=== PATIENT | female | born 1985 | race Caucasian/White ===

== ENCOUNTER 2017-11-13 04:01 | Observation (INO) | payer OTHER ==
--- NOTE | 2017-11-16 00:21 | PDGENHP ---
History and Physical History and Physical: S) pt presents to L&D with complaints of contractions since 0400. She states they have been getting more intense and are approx every 5-8 minutes. She denies any aggravating or alleviating factors. She denies any LOF, Vb. She reports +FM. She denies any headaches, visual changes, epigastric pain. O) VSS Exam: constitutional: WN/WF HEENT: supple Chest: CTA-B Heart: RRR no murmurs noted Abdomen: soft, nontender, gravid SVE: 3/-2 Extremities: WNL, trace edema skin: Warm, dry, intact Neuro: grossly normal Psych: normal affect A) 32yo with IUP@ 41-4wks likely early labor GBS Negative cat 1 FHR tracing P) d/c home at this time anticipate she will be back within 24hours [facility]KC and labor prec discussed IOL sched for 4/2
== END 2017-11-13 07:19 | disposition home or self-care (01) ==
LOC: FLD 04:01
PROVIDERS: ADMIT Advanced Practice Midwife; ATTEND Advanced Practice Midwife
DX: O47.1 False labor at or after 37 completed weeks of gestation (principal); O48.0 Post-term pregnancy; Z3A.41 41 weeks gestation of pregnancy
CPT/HCPCS: 59025; G0378

== ENCOUNTER 2017-11-13 21:23 | Inpatient (IN) | payer OTHER ==
[2017-11-14] MEDS ORDERED: TERBUTALINE SULFATE 1 MG/ML VIAL IV PRN (01:19)
[2017-11-14] MEDS ORDERED: LIDOCAINE 1% 300 MG/30 ML SDV SC PRN (01:19)
[2017-11-14] MEDS ORDERED: OXYTOCIN 20 UNIT in LR 1,000 ML IV PRN (01:19)
[2017-11-14] MEDS ORDERED: OLIVE OIL 118 ML BTL MISC PRN (01:19)
[2017-11-14] MEDS ORDERED: EPSOM SALT 454 GM TP PRN (01:19)
[2017-11-14] MEDS ORDERED: MISOPROSTOL 200 MCG TAB PR PRN (01:19)
[2017-11-14] MEDS ORDERED: LIDOCAINE 1% 300 MG/30 ML SDV ONE (01:37)
[2017-11-14] MEDS ORDERED: OXYTOCIN 10 UNIT/ML VIAL ONE (01:38)
[2017-11-14] MEDS ORDERED: AMMONIA AROMATIC 1 EACH AMP IH ONE (01:38)
[2017-11-14] MEDS ORDERED: OLIVE OIL 118 ML BTL ONE (01:38)
[2017-11-14] MEDS ORDERED: MISOPROSTOL 200 MCG TAB ONE (01:38)
[2017-11-14 02:25] LABS: PLATELET COUNT 194 10^3/uL (150-400)
[2017-11-14] MEDS: LR 1,000 ML IV PRN ×3 (03:07→04:31)
[2017-11-14] MEDS ORDERED: ONDANSETRON 4 MG/2 ML VIAL IVP PRN ×2 (03:15→04:16)
[2017-11-14] MEDS ORDERED: PHENYLEPHRINE HCL 100 MCG/ML SYR ONE (03:28)
[2017-11-14] MEDS ORDERED: BUPIVACAINE 0.25% 30 ML SDV ONE (03:28)
[2017-11-14] MEDS ORDERED: fentaNYL 100 MCG/2 ML INJ ONE (03:29)
[2017-11-14] MEDS ORDERED: PHENYLEPHRINE HCL 100 MCG/ML SYR IVP PRN (04:16)
--- NOTE | 2017-11-14 04:23 | PREANESOB ---
Obstetric Pre-Anesthesia Info - General Info Proposed Procedure: Labor and delivery. : 2 Para: 0 VIVIANA: 11/02/17 Gestational Age: 41 week(s) and 4 day(s) - Info Status: Postmature Monitors: External FHR Baseline (bpm): 120 FHR Pattern: Reassuring - Labor Status Cervical Dilation per last OB SVE: 5 Indications for Labor Analgesia: Pain Control Labor Epidural: Proposed Anesthesia ROS: Prior general anesthesia. Allergies/Adverse Reactions: Allergy/AdvReac Type Severity Reaction Status Date / Time dog dander Allergy Severe Dyspnea Verified 06/25/16 06:53 SEASONAL Allergy Uncoded 11/13/17 04:14 Home Medications: Medication Instructions Recorded 1 tab PO DAILY 11/13/17 Visit Medications: Generic Name Dose Route Start Last Admin Trade Name Freq PRN Reason Stop Dose Admin Diphenhydramine HCl 25 - 50 mg 11/14/17 04:16 Benadryl Injection IVP 05/13/18 04:15 Q6HRS PRN Itching Lactated Ringer's 1,000 mls @ 0 mls/hr 11/14/17 01:19 11/14/17 03:56 Lr IV 11/15/17 01:18 1,000 mls PRN PRN Administration SEE PROTOCOL CONDITIONS Protocol Per Protocol Oxytocin 20 unit/ Lactated 1,002 mls @ 150 mls/hr 11/14/17 01:19 Ringer's IV PRN PRN Post- bleeding Fentanyl/Bupivacaine HCl 100 mls @ 0 mls/hr 11/14/17 04:30 Fentanyl/Bupivacaine/Ns 2 Mcg/Ml 0.1% (Premix EP 11/24/17 04:29 CONT THALIA Protocol As Directed Lactated Ringer's 500 mls @ 0 mls/hr 11/14/17 04:30 Lr IV 05/13/18 04:29 CONT THALIA As Directed Ibuprofen 600 mg 11/14/17 01:19 Motrin PO 05/13/18 01:18 Q6HRS PRN post , inflammation Lidocaine HCl 300 mg 11/14/17 01:19 Lidocaine Hcl 1% SC 05/13/18 01:18 ONCE PRN episiotomy Magnesium Sulfate 454 gm 11/14/17 01:19 Epsom Salt TP 05/13/18 01:18 Q1H PRN perineal discomfort Misoprostol 800 - 1,000 mcg 11/14/17 01:19 Cytotec OK ONCE PRN Vaginal Atony/Bleeding Wellington Oil 118 ml 11/14/17 01:19 Sweet Oil MISC 05/13/18 01:18 ONCE PRN perineal massage Ondansetron HCl 4 mg 11/14/17 04:16 Zofran IVP 11/15/17 04:15 Q4HRS PRN Nausea/Vomiting, Can't Take PO Phenylephrine HCl 100 mcg 11/14/17 04:16 Neosynephrine IVP 05/13/18 04:15 .Q2M PRN Hypotension Terbutaline Sulfate 0.25 mg 11/14/17 01:19 Brethine IV 05/13/18 01:18 ONCE PRN Tachysystole Discontinued Medications Generic Name Dose Route Start Last Admin Trade Name Freq PRN Reason Stop Dose Admin Ammonia (Aromatic Spirit) Confirm 11/14/17 01:38 Ammonia Aromatic Administered 11/14/17 01:39 Dose 1 each IH .STK-MED ONE Bupivacaine HCl Confirm 11/14/17 03:28 Sensorcaine 0.25% Sdv Administered 11/14/17 03:29 Dose 30 ml .ROUTE .STK-MED ONE Fentanyl Confirm 11/14/17 03:29 Sublimaze Administered 11/14/17 03:30 Dose 100 mcg .ROUTE .STK-MED ONE Lidocaine HCl Confirm 11/14/17 01:37 Lidocaine Hcl 1% Administered 11/14/17 01:38 Dose 300 mg .ROUTE .STK-MED ONE Misoprostol Confirm 11/14/17 01:38 Cytotec Administered 11/14/17 01:39 Dose 1,000 mcg .ROUTE .STK-MED ONE Wellington Oil Confirm 11/14/17 01:38 Sweet Oil Administered 11/14/17 01:39 Dose 118 ml .ROUTE .STK-MED ONE Oxytocin Confirm 11/14/17 01:38 Pitocin Administered 11/14/17 01:39 Dose 40 unit .ROUTE .STK-MED ONE Phenylephrine HCl Confirm 11/14/17 03:28 Neosynephrine Administered 11/14/17 03:29 Dose 1,000 mcg .ROUTE .STK-MED ONE - Anesthesia History Response to Local Anesthetics: Normal Anesthesia & Operative History: No Prior Problems Family Anesthesia History: Negative - Social History Substance Use/Abuse: Denies - Vital Signs Blood Pressure: 108/69 Heart Rate: 84 Height/Weight (Nursing): Height 165.1 cm Weight 70.76 kg - Focused Exam Neck exam: FROM Mallampati Score: Class 2 Mouth exam: normal dental/mouth exam Pulmonary: no respiratory distress Cardiovascular: regular rate and rhythym Labs: 11/14/17 02:00 Patient ABO/Rh A POSITIVE 11/14/17 02:00 - Plan Consent Signed and on Chart: Yes Patient/Guardian Understands and Agrees to Plan: Yes Urgent/Emergent Case: Pilar john completed preop but documented later for safe timely pt care
--- NOTE | 2017-11-14 04:25 | POSTANESTH ---
Post Anesthetic Evaluation Cardiovascular Status: Normal, Stable, Similar to Pre-Op Cond Respiratory Status: Normal, Stable, Similar to Pre-op Cond. Level of Consciousness/Mental Status: Can Participate in Eval Pain Control: Adequate, Prn Tx Ordered Nausea/Vomiting Control: Adequate, Prn Tx Ordered Complications Possibly Related to Anesthesia: None Noted
[2017-11-14] MEDS ORDERED: fentaNYL 200 MCG, BUPIVACAINE 0.5% 20 ML in NS 100 ML EP SCH (04:30)
[2017-11-14] MEDS ORDERED: LR 500 ML IV SCH (04:30)
[2017-11-14] MEDS ORDERED: fentaNYL 2MCG/ML/BUP 0.1% RTU 100 ML EP SCH (04:30)
[2017-11-14] MEDS ORDERED: ACETAMINOPHEN 500 MG TAB PO ONE (08:58)
--- NOTE | 2017-11-14 08:58 | OBPROG ---
Labor Progress Note Assessment/Plan: Assessment: Plan: Subjective/Intrapartum Course: 11/14/17 08:56 Doing well feeling comfortable with an epidural. Arom ok with patient and familly Objective: 11/14/17 02:00 Patient ABO/Rh A POSITIVE 11/14/17 02:00 Temp Pulse Resp BP Pulse Ox 84 108/69 11/14/17 04:24 11/14/17 04:24 - SVE Dilation (cm): 8 Effacement (%): 100 Station: 0 Membranes: AROM Amniotic Fluid Color: Meconium Stained - Contraction Pattern Assessment Current Contraction Pattern: Irregular - FHR Assessment Scherer FHR (bpm): 125 FHR Pattern Variability: Moderate FHR Category: 2 - Procedures Non-surgical Procedures: Amniotomy - Physical Exam General Appearance: WD/WN, alert, no apparent distress Respiratory: chest non-tender, lungs clear, normal breath sounds Cardiac/Chest: regular rate, rhythm Abdomen: normal bowel sounds Extremities: normal range of motion, Alexandra's sign (negative bilaterally) DTR- Lower Extremities: Knee (R): 1+, Knee (L): 1+ (no clonus) Skin: normal color, warm/dry Neuro/Psych: no motor/sensory deficits, alert, normal mood/affect, oriented x 3 Oxytocin Orders Assessment - Pre-Induction/Augmentation Assessment Gestational Age: 41 week(s) and 4 day(s) ICD10 Worksheet Patient Problems: Problems Problem Status Onset term labor Acute
--- NOTE | 2017-11-14 09:34 | GHP ---
[f rep st] HISTORY AND PHYSICAL DATE OF ADMISSION: 11/13/2017 HISTORY OF PRESENT ILLNESS: The patient is a __32_year-old 2, A1, living 0, with an EDC of 11/02/2017, which gives her a gestational age of 41 and 5/7 weeks, who comes in in labor at 6 cm at 3 a.m. on 11/14/2016. Patient has a family history of thyroid disease. Thyroid levels were within normal limits with labs. History of migraines and history of depression. SOCIAL HISTORY: Patient is to taryn. Denies drug use. Denies tobacco use. MEDICATIONS: Taking vitamins with DHA. ALLERGIES: No allergic to any medications. GYNECOLOGICAL HISTORY: Previous use of condoms. Pap was within normal limits on 09/2015. PAST SURGICAL HISTORY: A D and C on 06/01 with an MAB, a cystectomy in 2006. PAST MEDICAL HISTORY: Cystitis x2, asthma diagnosed when she was 6 years old. Depression, migraines PREVIOUS HISTORY: On 05/2016 at 6 to 7 weeks an MAB where the patient had a D and C. LABS: The patient is A positive, antibody negative. RPR is nonreactive. Rubella is immune. Hepatitis is negative. HIV is negative. Parvo is immune. Thyroid was within normal limits. Pap was within normal limits. Gonorrhea and chlamydia were negative and was negative. One hour GTT was within normal limits. PHYSICAL EXAMINATION: GENERAL: Patient is awake, alert, oriented x3. LUNGS: Clear bilaterally. ABDOMEN: Bowel sounds are positive in all 4 quadrants. EXTREMITIES: DTRs are 1+ bilaterally. Homans sign is negative. Patient is GBS negative. PLAN OF CARE: 1. Epidural for pain relief. 2. GBS negative. 3. AROM with the possibility of Pitocin to assist with adequate contractions. Consult with Dr. Zehra Patten as needed for plan of care. /[id number]/MODL MTDD
--- NOTE | 2017-11-14 10:35 | OBPROG ---
Labor Progress Note Assessment/Plan: Assessment:cat 2 fhr pain well managed with epidural feeling some pressure with contractions contractions q 5 minutes will begin pitocin per protocol meconium fluid thick exam 7-8/90/0 station cephalic frequent change in position to assist with descent and cervical dilation Plan:pitocin amena protocol consult dr. drew villeda as needed for POC 11/14/17 10:33 Subjective/Intrapartum Course: 11/14/17 08:56 Doing well feeling comfortable with an epidural. Arom ok with patient and familly Objective: 11/14/17 02:00 Patient ABO/Rh A POSITIVE 11/14/17 02:00 Temp Pulse Resp BP Pulse Ox 84 108/69 11/14/17 04:24 11/14/17 04:24 - SVE Dilation (cm): 7, 8 Effacement (%): 90 Station: +1 Membranes: AROM Amniotic Fluid Color: Meconium Stained - Contraction Pattern Assessment Current Contraction Pattern: Regular - FHR Assessment Scherer FHR (bpm): 110 FHR Pattern Variability: Moderate FHR Category: 2 - Procedures Non-surgical Procedures: Amniotomy Oxytocin Orders Assessment - Pre-Induction/Augmentation Assessment Gestational Age: 41 week(s) and 4 day(s) ICD10 Worksheet Patient Problems: Problems Problem Status Onset term labor Acute
[2017-11-14] MEDS ORDERED: OXYTOCIN 30 UNIT in NS 500 ML IV SCH (10:45)
--- NOTE | 2017-11-14 12:05 | OBPROG ---
Labor Progress Note Assessment/Plan: Assessment:cat 2 fhr pain well managed with epidural/ right hip pain feeling some pressure with contractions q2 minute contractions meconium fluid thick exam 9/90/+1 station cephalic frequent change in position to assist with descent and cervical dilation Plan:pitocin per protocol consult dr. drew villeda as needed for POC 11/14/17 10:33 11/14/17 12:02 Subjective/Intrapartum Course: 41.5/7 spontaneous labor , arom meconium epidural for pain relief 11/14/17 08:56 Doing well feeling comfortable with an epidural. Arom ok with patient and familly 11/14/17 12:04 Objective: 11/14/17 02:00 Patient ABO/Rh A POSITIVE 11/14/17 02:00 Temp Pulse Resp BP Pulse Ox 84 108/69 11/14/17 04:24 11/14/17 04:24 - SVE Dilation (cm): 9 Effacement (%): 90 Station: +1 Membranes: AROM Amniotic Fluid Color: Meconium Stained - Contraction Pattern Assessment Current Contraction Pattern: Regular - Procedures Non-surgical Procedures: Amniotomy - AP Antepartum Course: G2po 41.5 ga spontaneous labor. no medical difficulties with the 11/14/17 12:03 Oxytocin Orders Assessment - Pre-Induction/Augmentation Assessment Gestational Age: 41 week(s) and 4 day(s) ICD10 Worksheet Patient Problems: Problems Problem Status Onset term labor Acute
--- NOTE | 2017-11-14 13:17 | OBPROG ---
Labor Progress Note Assessment/Plan: Assessment:cat 2 fhr breathing through pain call to anesthesia for a bolus dose feeling some pressure with contractions q2-3 contractions pitocin at 2mu meconium fluid thick exam /+1 station cephalic iupc placed contractions adequete Plan:pitocin per protocol consult dr. drew villeda as needed for POC 11/14/17 10:33 11/14/17 12:02 11/14/17 13:15 Subjective/Intrapartum Course: 41.5/7 spontaneous labor , arom meconium epidural for pain relief 11/14/17 08:56 Doing well feeling comfortable with an epidural. Arom ok with patient and familly 11/14/17 12:04 11/14/17 13:15 Feeling greater pain. Call to anesthesia for a bolus for pain relief on the right side. Objective: 11/14/17 02:00 Patient ABO/Rh A POSITIVE 11/14/17 02:00 Temp Pulse Resp BP Pulse Ox 84 108/69 11/14/17 04:24 11/14/17 04:24 - SVE Dilation (cm): 9 Effacement (%): 100 Station: +1 Membranes: AROM Amniotic Fluid Color: Meconium Stained - Contraction Pattern Assessment Current Contraction Pattern: Regular - FHR Assessment Scherer FHR (bpm): 120 FHR Pattern Variability: Minimal FHR Category: 2 - Procedures Non-surgical Procedures: Amniotomy - AP Antepartum Course: G2po 41.5 ga spontaneous labor. no medical difficulties with the 11/14/17 12:03 Oxytocin Orders Assessment - Pre-Induction/Augmentation Assessment Gestational Age: 41 week(s) and 4 day(s) ICD10 Worksheet Patient Problems: Problems Problem Status Onset term labor Acute
--- NOTE | 2017-11-14 14:43 | OBPROG ---
Labor Progress Note Assessment/Plan: Assessment:cat 2 fhr pain gone on the right side feeling better with pushing minimal downward descent with pushing will labor down for a bit 1-2h feeling some pressure with contractions q2-3 contractions pitocin at 2mu meconium fluid thick exam /+1 station cephalic iupc placed contractions adequete Plan:will labor down for 1-2h 11/14/17 10:33 11/14/17 12:02 11/14/17 13:15 11/14/17 14:41 Subjective/Intrapartum Course: 41.5/7 spontaneous labor , arom meconium epidural for pain relief 11/14/17 08:56 Doing well feeling comfortable with an epidural. Arom ok with patient and familly 11/14/17 12:04 11/14/17 13:15 Feeling greater pain. Call to anesthesia for a bolus for pain relief on the right side. Objective: 11/14/17 02:00 Patient ABO/Rh A POSITIVE 11/14/17 02:00 Temp Pulse Resp BP Pulse Ox 84 108/69 11/14/17 04:24 11/14/17 04:24 - SVE Dilation (cm): 10 Effacement (%): 100 Station: +1 Membranes: AROM Amniotic Fluid Color: Meconium Stained - Contraction Pattern Assessment Current Contraction Pattern: Regular - Procedures Non-surgical Procedures: Amniotomy - AP Antepartum Course: G2po 41.5 ga spontaneous labor. no medical difficulties with the 11/14/17 12:03 Oxytocin Orders Assessment - Pre-Induction/Augmentation Assessment Gestational Age: 41 week(s) and 4 day(s) ICD10 Worksheet Patient Problems: Problems Problem Status Onset term labor Acute
[2017-11-14] MEDS ORDERED: ACETAMINOPHEN 325 MG TAB PO PRN (17:58)
[2017-11-14] MEDS ORDERED: SIMETHICONE 80 MG TAB CHEW PO PRN (17:58)
[2017-11-14] MEDS ORDERED: HYDROCODONE/APAP 5/325 TAB PO PRN (17:58)
[2017-11-14] MEDS ORDERED: HYDROCORTISONE 0.5% CREAM TP PRN (17:58)
--- NOTE | 2017-11-14 17:58 | OBDEL ---
Info Type: Vaginal Presentation at Delivery: Vertex L&D Analgesia/Anesthesia Type: Epidural, Local GBS+: No Intrapartum Medications: Generic Name Dose Route Start Last Admin Trade Name Freq PRN Reason Stop Dose Admin Lactated Ringer's 1,000 mls @ 0 mls/hr 11/14/17 01:19 11/14/17 04:31 Lr IV 11/15/17 01:18 1,000 mls PRN PRN Administration SEE PROTOCOL CONDITIONS Protocol Per Protocol Oxytocin 30 unit/ Sodium 503 mls @ 0 mls/hr 11/14/17 10:45 11/14/17 10:54 Chloride IV 05/13/18 10:44 503 mls CONT THALIA Administration Protocol Per Protocol Discontinued Medications Generic Name Dose Route Start Last Admin Trade Name Freq PRN Reason Stop Dose Admin Acetaminophen 1,000 mg 11/14/17 08:58 11/14/17 09:07 Tylenol PO 11/14/17 08:59 1,000 mg ONCE ONE Administration - Hospital Course Intrapartum: 41.5/7 spontaneous labor , arom meconium epidural for pain relief 11/14/17 08:56 Doing well feeling comfortable with an epidural. Arom ok with patient and familly 11/14/17 12:04 11/14/17 13:15 Feeling greater pain. Call to anesthesia for a bolus for pain relief on the right side. Indications for Delivery: Spontaneous Labor Vaginal Delivery - Delivery Provider Delivery Physician/CNM: Sylvie Jordan Proctoring Provider: Zehra Patten - Labor and Delivery Onset of Contractions Date: 11/12/17 Onset of Contractions Time: 04:00 Onset of Contractions Type: Augmented Rupture of Membranes Date: 11/14/17 Rupture of Membranes Type: Artificial Amniotic Fluid Color: Meconium Stained Dilation Complete Date: 11/14/17 Dilation Complete Time: 14:29 Placenta Delivery Date: 11/14/17 Placenta Delivery Time: 17:31 Total Hours of Labor: 61 Non-surgical Procedures: Amniotomy Laceration: 2nd Degree Repair: 3-0, Vicryl, Other (Specify) (right vaginal sidewall) Vaginal Sponge Count Correct: Yes Vaginal Needle Count Correct: Yes Vaginal Sweep Performed: No EBL: 350 Delivery Events: None - Medications Labor Augmentation/Induction Methods Used: Pitocin Labor Augmentation/Induction Indication: Contraction Strength Inadequate Data VIVIANA: 11/02/17 Gestational Age: 41 week(s) and 5 day(s) Scherer Delivery Date: 11/14/17 Delivery Time: 17:26 Sex of Infant: Male Score (1 Min): 8 Score (5 Min): 9 ICD10 Worksheet Patient Problems: Problems Problem Status Onset term labor Acute
[2017-11-14] MEDS: IBUPROFEN 600 MG TAB PO PRN (18:24)
--- NOTE | 2017-11-14 18:46 | PDMN ---
Medical Necessity Medical necessity: C/M review: Patient meets INPT criteria under [facility] [place] [id number] Vaginal delivery: viable male .
[2017-11-15 05:36] VITALS: RESP 16
[2017-11-15] MEDS: DOCUSATE SODIUM 100 MG CAP PO PRN ×2 (09:51→20:38)
[2017-11-15] MEDS: IBUPROFEN 600 MG TAB PO PRN ×3 (09:51→22:09)
--- NOTE | 2017-11-15 15:18 | OBPP ---
Progress Note Assessment/Plan: PPD1 s/p . Mom and Baby doing well - waiting on baby to void. Routine cares, likely home tomorrow. H/H not done today, will order tomorrow AM. RhoGam/MMR/Varivax if indicated prior to dc. NIR Subjective/ Course: Doing great - no issues. Pain controlled, up and ambulating, has voided. Would like to leave tomorrow around Noon. Baby hasn't had any wet diapers yet, so they're waiting on that. Objective: 11/14/17 02:00 Patient ABO/Rh A POSITIVE 11/14/17 02:00 Temp Pulse Resp BP Pulse Ox 36.7 C 89 16 83/51 L 94 11/15/17 05:34 11/15/17 05:34 11/15/17 05:34 11/15/17 05:34 11/15/17 05:34 Uterine Position/Fundal Height: At Umbilicus Uterine Tone: Firm
[2017-11-15 23:12] VITALS: BP 98/62; PULSE 79; TEMP 97.3; O2SAT 95
[2017-11-16] MEDS: IBUPROFEN 600 MG TAB PO PRN ×2 (06:23→13:06)
--- NOTE | 2017-11-16 10:07 | OBPP ---
Progress Note Assessment/Plan: Assessment: 1) s/p PPD#2 - pt is stable 2) Anemia - pt is asymptomatic Plan: Plan for d/c home today Instructions reviewed with pt No Rx given Cont PNV, iron and colace Pelvic rest RTC in 4 and 6 weeks for pp visit 11/16/17 10:05 Subjective/ Course: Doing great - no issues. Pain controlled, up and ambulating, has voided. Would like to leave tomorrow around Noon. Baby hasn't had any wet diapers yet, so they're waiting on that. 11/16/17 10:05 Pt seen and examined. Doing well with no complaints. Mild cramping with BF, relief with Motrin. Moderate lochia. Pt is OOB, jose juan reg diet, voiding and BM x 1. BF going well so far. Waiting for baby to be circumcised. Objective: 11/16/17 03:50 Patient ABO/Rh A POSITIVE 11/14/17 02:00 Temp Pulse Resp BP Pulse Ox 36.3 C 79 16 98/62 L 95 11/15/17 20:00 11/15/17 20:00 11/15/17 20:00 11/15/17 20:00 11/15/17 20:00 Uterine Position/Fundal Height: Umbilicus -2 Uterine Tone: Firm Physical Exam - Physical Exam Respiratory: lungs clear, normal breath sounds Cardiac/Chest: regular rate, rhythm Abdomen: normal bowel sounds, non-tender, soft, flatus (+) Extremities: non-tender, normal inspection Skin: normal color, warm/dry Neuro/Psych: alert, normal mood/affect, oriented x 3
--- NOTE | 2017-11-16 10:07 | OBGCSDC ---
General Delivery Information - General Info : 2 Para: 1 Abortions: 1 Type: Vaginal L&D Analgesia/Anesthesia Type: Epidural, Local Admission Date: 11/14/17 Labs: Patient ABO/Rh A POSITIVE 11/14/17 02:00 Hct 33.5 % (38.0-47.0) L 11/16/17 03:50 - Hospital Course Antepartum: G2po 41.5 ga spontaneous labor. no medical difficulties with the 11/14/17 12:03 Intrapartum: 41.5/7 spontaneous labor , arom meconium epidural for pain relief 11/14/17 08:56 Doing well feeling comfortable with an epidural. Arom ok with patient and familly 11/14/17 12:04 11/14/17 13:15 Feeling greater pain. Call to anesthesia for a bolus for pain relief on the right side. : Doing great - no issues. Pain controlled, up and ambulating, has voided. Would like to leave tomorrow around Noon. Baby hasn't had any wet diapers yet, so they're waiting on that. 11/16/17 10:05 Pt seen and examined. Doing well with no complaints. Mild cramping with BF, relief with Motrin. Moderate lochia. Pt is OOB, jose juan reg diet, voiding and BM x 1. BF going well so far. Waiting for baby to be circumcised. Vaginal - Delivery Provider Delivery Physician/CNM: Sylvie Jordan - Diagnosis Labor: Augmented Rupture of Membranes Type: Artificial Amniotic Fluid Color: Meconium Stained Laceration: 2nd Degree Repair: 3-0, Vicryl, Other (Specify) (right vaginal sidewall) Delivery Events: None - Procedures Non-surgical Procedures: Amniotomy - Delivery Non-surgical Procedures: Amniotomy EBL: 350 Data VIVIANA: 11/02/17 Gestational Age: 42 week(s) and 0 day(s) Scherer Delivery Date: 11/14/17 Delivery Time: 17:26 Sex of : Male Weight (gm): 3736 g Score (1 Min): 8 Score (5 Min): 9 Discharge Information - Discharge Information Condition: Good Instruction/Follow Up: Four Weeks, Six Weeks
== END 2017-11-16 12:35 | disposition home or self-care (01) | DRG 775 ==
LOC: FLD 21:23 → OBSVTOIN 11-14 09:54 → FOB 11-14 20:29
PROVIDERS: ADMIT Obstetrics & Gynecology; ATTEND Obstetrics & Gynecology
PROC: 10907ZC Drainage of Amniotic Fluid, Therapeutic from Products of Conception, Via Natural or Artificial Opening (ICD-10-PCS; principal; 2017-11-14)
PROC: 0KQM0ZZ Repair Perineum Muscle, Open Approach (ICD-10-PCS; principal; 2017-11-14)
PROC: 10E0XZZ Delivery of Products of Conception, External Approach (ICD-10-PCS; principal; 2017-11-14)
DX: O70.1 Second degree perineal laceration during delivery (principal); Z37.0 Single live birth; Z3A.41 41 weeks gestation of pregnancy
CPT/HCPCS: J2370; J2590; J3010